=== PATIENT | female | born 1975 | race Hispanic/Latino ===

== ENCOUNTER 2021-02-22 16:58 | Emergency (ER) | payer MEDICAID ==
[2021-02-22 20:37] VITALS: BP 145/72
--- NOTE | 2021-02-22 20:51 | Event Note ---
ED Screening Note Date of service: 02/22/21 Time: 20:50 ED Screening Note: Patient 45-year-old female with history of depression, denies SI or HI at this time. Patient states mold exposure for the past 2 weeks now with shortness of breath cough bilateral lower extremity edema and intermittent brain fog. Symptoms are exacerbated by being in apartment. Symptoms are relieved by being outside of her apartment. Patient requesting chest x-ray to rule out mold pneumonia. This initial assessment/diagnostic orders/clinical plan/treatment(s) is/are subject to change based on patients health status, clinical progression and re- assessment by fellow clinical providers in the ED. Further treatment and workup at subsequent clinical providers discretion. Patient/guardian urged not to elope from the ED as their condition may be serious if not clinically assessed and managed. Initial orders include:
--- NOTE | 2021-02-22 22:36 | Emergency Department Report ---
ED General Adult HPI - General Chief complaint: Medical Clearance Stated complaint: My legs are swollen for 1 week. My vision has been blurry for years. I have been having a headache for years. I have been exposed to black mold for 4 years PUI?: Yes Time Seen by Provider: 02/22/21 22:22 Source: patient, RN notes reviewed, old records reviewed Mode of arrival: Ambulatory Limitations: No Limitations - History of Present Illness Initial comments: The patient was evaluated in the emergency department for symptoms described in the history of present illness. He/she was evaluated in the context of the global COVID-19 pandemic, which necessitated consideration that the patient might be at risk for infection with the virus that causes COVID-19. Institutional protocols and algorithms that pertain to the evaluation of patie nts at risk for COVID-19 are in a state of rapid change based on information released by regulatory bodies including the CDC and federal and state organizations. These policies and algorithms were followed during the patient's care in the emergency department. Please note that these policies, procedures and recommendations changed on a rapid basis. During the history and physical examination, I am chaperoned by nurse Lizeth Tang This is a [age]-year-old female. She is not known to myself previously. She appears to have a history of migraine headaches, depression, and alcohol dependency. She has not received her COVID-19 vaccination. The patient presents to the ER today with 5 complaints. Her first complaint is concerned that she has been exposed to black mold for 4 years. The patient believes that she has been exposed to mold at her current domicile. She is trying to seek alternative living accommodations. She currently denies chest pain, new/different shortness of breath, vomiting. Her next complaint is that her legs have been swollen for 1 to 2 weeks. She denies leg pain, travel, surgery, immobilization, personal/family history of DVT and pulmonary embolism She does not take oral contraceptives. She denies the possibility of . Her next complaint is a headache which has been present for years. The headache is not sudden or thunderclap in nature. The headache is not maximal in intensity. No fever. No no acute changes in vision. No ataxia. No focal extremity weakness/numbness. Her next complaint is request for psychiatric evaluation. The patient is not homicidal suicidal. She states she does not want to overdose on anything. She denies hallucinations. She states she is considering filing a lawsuit, and is seeking reassurance that she is in her right mind. Her next complaint is blurry vision. This is painless, binocular, and present f or years. She currently wears glasses. She has not had her vision checked in quite some time. It is intermittent. -: Gradual, week(s), month(s), year(s) Location: head, left, lower extremity Consistency: intermittent Improves with: none Worsens with: none - Related Data Previous Rx's Medication Instructions Recorded Last Taken Type Multivitamin with Folic Acid 400 mcg PO QDAY #30 tablet 02/23/21 Unknown Rx [Tab-A-Murali Tablet] Potassium Chloride [K-Dur] 20 meq PO QDAY #30 tab 02/23/21 Unknown Rx Allergies Allergy/AdvReac Type Severity Reaction Status Date / Time No Known Allergies Allergy Unverified 06/11/13 19:19 ED Review of Systems ROS: Stated complaint: SWOLLEN FEET, BLURRED VISION, HEADACHE Other details as noted in HPI Constitutional: denies: fever Eyes: other (Blurry vision for years). denies: eye pain Respiratory: denies: shortness of breath Cardiovascular: denies: chest pain Gastrointestinal: denies: abdominal pain, nausea, vomiting, diarrhea Musculoskeletal: other (Bilateral lower extremity swelling) Neurological: headache Psychiatric: denies: auditory hallucinations, visual hallucinations, homicidal thoughts, suicidal thoughts ED Past Medical Hx - Past Medical History Hx Headaches / Migraines: Yes Hx Psychiatric Treatment: Yes (Pt. states 2years ago was admitted to [facility].) Additional medical history: DEPRESSION, alcohol dependency and in treatment 2013 - Surgical History Past Surgical History?: No Additional Surgical History: TUBAL - Social History Smoking Status: Current Every Day Smoker Substance Use Type: None - Medications Home Medications: Home Medications Medication Instructions Recorded Confirmed Last Taken Type Multivitamin with Folic Acid 400 mcg PO QDAY #30 tablet 02/23/21 Unknown Rx [Tab-A-Murali Tablet] Potassium Chloride [K-Dur] 20 meq PO QDAY #30 tab 02/23/21 Unknown Rx ED Physical Exam - General Limitations: No Limitations General appearance: alert, in no apparent distress - Head Head exam: Present: atraumatic, normocephalic - Eye Eye exam: Present: normal appearance, PERRL, EOMI, other (Visual acuity intact to finger counting, color perception, reading at a close distance). Absent: nystagmus - ENT ENT exam: Present: normal exam, normal orophraynx, mucous membranes moist, normal external ear exam - Neck Neck exam: Present: normal inspection, full ROM. Absent: tenderness, meningismus - Respiratory Respiratory exam: Present: normal lung sounds bilaterally. Absent: respiratory distress, wheezes, rales, rhonchi, stridor, decreased breath sounds - Cardiovascular Cardiovascular Exam: Present: regular rate, normal rhythm, normal heart sounds. Absent: bradycardia, tachycardia, irregular rhythm, systolic murmur, diastolic murmur, rubs, gallop - GI/Abdominal GI/Abdominal exam: Present: soft, normal bowel sounds. Absent: distended, tenderness, guarding, rebound, rigid, pulsatile mass - Extremities Exam Extremities exam: Present: normal inspection, full ROM, pedal edema (1-2+ edema in the bilateral lower extremity), other (2+ pulses noted in the bilateral upper and lower extremities. There is no palpable cord. negative Homans sign. M uscular compartments are soft. The pelvis is stable.). Absent: calf tenderness - Back Exam Back exam: Present: normal inspection, full ROM. Absent: tenderness, CVA tenderness (R), CVA tenderness (L), paraspinal tenderness, vertebral tenderness - Neurological Exam Neurological exam: Present: alert (There is no past-pointing. There is no pronator drift. There is normal [id number]), oriented X3, normal gait, other (No facial droop. Tongue midline. Extraocular movements intact bilaterally. Facial sensation intact to light touch in V1, V2, V3 distribution bilaterally. 5 and a 5 strength in 4 extremities. Sensation intact to light touch in 4 extremities.). Absent: motor sensory deficit - Psychiatric Psychiatric exam: Present: flat affect. Absent: homicidal ideation, suicidal ideation - Skin Skin exam: Present: warm, dry, intact, normal color. Absent: rash ED Course Vital Signs 02/22/21 20:34 Temperature 98.4 F Pulse Rate 81 Respiratory 16 Rate Blood Pressure 145/72 O2 Sat by Pulse 98 Oximetry - Reevaluation(s) Reevaluation #1: 02/22/21 23:05 Differential diagnosis, including but not limited to: Chronic headache, chronic blurry vision, dependent edema, renal insufficiency, hepatic insufficiency, hypoalbuminemia, encounter for medical screening examination, encounter for behavioral health screening examination, COVID-19 Assessment and plan: 45-year-old female, who is clinically sober with a GCS of 15, not homicidal, not suicidal, exhibits decision-making capacity, walks with a steady gait, with NIH score of 0, who is not currently tachycardic, tachypneic or hypoxic, who denies DVT and pulmonary embolism risk factors, who is low risk by Wells criteria for pulmonary embolism, PERC negative, with a pentad of nonspecific complaints. Complaints #1, concern for exposure to black mold for years. Lung sounds clear. Not hypoxic. No focal pulmonary findings. X-ray not indicated. Counseled patient that we do not have access to blood or serologic testing to confirm or refute the presence of exposure to black mold. This has been present for years as per the patient's history, she does not appear to be acutely decompensated in this capacity, she may follow-up with her primary care doctor or health department for this concern. Complaint #2,3, headache for years, nonspecific blurry vision for years. GCS 15, NIH score of 0. Visual acuity intact to finger counting, color perception, reading at a close distance Upon my initial evaluation, the patient is reading a tablet, and does not appear to be in any acute distress. Given chronicity of symptoms, benign neurologic examination, do not see indication for advanced emergent neuroimaging. Tylenol, ibuprofen as needed, outpatient follow-up with primary care and/or optometry. Complaint #4, lower extremity swelling. Check liver panel, hepatic panel. No DVT or pulmonary embolism risk factors. If laboratory studies unremarkable, compression stockings, and outpatient follow-up. Complaint #5. Patient awake, alert, oriented, sober, and exhibits decision- making capacity, and is free from distracting injury. She does not meet criteria for 1013 hold or involuntary hold. Patient does not require emergent psychiatric consultation or evaluation here in the emergency room. I advised the patient that if she would like nonemergent psychiatric evaluation, she is welcome to follow-up with a primary care doctor, psychologist, therapist, or outpatient psychiatric facility. She states she is not interested in doing this at this time. During the entire history and physical examination, I am chaperoned by Tamia Tang Patient also endorses nonspecific loss of taste and/or smell for about a month. Long-term Covid is a possibility. Again, not acutely decompensated. Have counseled patient to consider COVID-19 vaccination. The patient is not interested in the vaccination at this time. 02/23/21 00:33 On reevaluation, the patient is sitting comfortably in stretcher, reading paperwork. She is in no acute distress Patient in no acute distress. Laboratory studies unremarkable with the exception of potassium of 3.3. Repeat neurologic examination appears to be unchanged. Suitable for discharge with outpatient follow-up. The patient does not appear to have an emergent medical condition at this time, and is medically suitable to f ollow-up with outpatient primary care doctor All questions answered. The patient endorsed understanding. 02/23/21 00:39 ED Medical Decision Making - Lab Data Result diagrams: 02/23/21 00:04 02/22/21 21:24 Vital Signs 02/22/21 20:34 Temperature 98.4 F Pulse Rate 81 Respiratory 16 Rate Blood Pressure 145/72 O2 Sat by Pulse 98 Oximetry Lab Results 02/22/21 02/22/21 02/22/21 Range/Units 21:24 23:04 23:04 WBC (4.5-11.0) K/mm3 RBC (3.65-5.03) M/mm3 Hgb (10.1-14.3) gm/dl Hct (30.3-42.9) % MCV (79-97) fl MCH (28-32) pg MCHC (30-34) % RDW (13.2-15.2) % Plt Count (140-440) K/mm3 Lymph % (Auto) (13.4-35.0) % [place] % (Auto) (0.0-7.3) % Eos % (Auto) (0.0-4.3) % Baso % (Auto) (0.0-1.8) % Lymph # (Auto) (1.2-5.4) K/mm3 [place] # (Auto) (0.0-0.8) K/mm3 Eos # (Auto) (0.0-0.4) K/mm3 Baso # (Auto) (0.0-0.1) K/mm3 Seg Neutrophils % (40.0-70.0) % Seg Neutrophils # (1.8-7.7) K/mm3 PT 12.8 (12.2-14.9) Sec. INR 0.90 (0.87-1.13) Sodium 141 (137-145) mmol/L Potassium 3.3 L (3.6-5.0) mmol/L Chloride 102.1 (98-107) mmol/L Carbon Dioxide 22 (22-30) mmol/L Anion Gap 20 mmol/L BUN 8 (7-17) mg/dL Creatinine 0.6 (0.6-1.2) mg/dL Estimated GFR > 60 ml/min BUN/Creatinine Ratio 13 % Glucose 99 (65-100) mg/dL Calcium 8.7 (8.4-10.2) mg/dL Magnesium 1.90 (1.7-2.3) mg/dL Total Bilirubin 0.20 (0.1-1.2) mg/dL Direct Bilirubin < 0.2 (0-0.2) mg/dL Indirect Bilirubin 0.0 mg/dL AST 15 (5-40) units/L ALT 15 (7-56) units/L Alkaline Phosphatase 64 (35-129) units/L Total Creatine Kinase 177 H (30-135) units/L Total Protein 6.8 (6.3-8.2) g/dL Albumin 4.3 (3.9-5) g/dL Albumin/Globulin Ratio 1.7 % TSH (0.270-4.200) mlU/mL HCG, Quant (0-4) mIU/mL Salicylates (2.8-20.0) mg/dL Acetaminophen (10.0-30.0) ug/mL 02/22/21 02/22/21 02/22/21 Range/Units 23:04 23:04 23:04 WBC (4.5-11.0) K/mm3 RBC (3.65-5.03) M/mm3 Hgb (10.1-14.3) gm/dl Hct (30.3-42.9) % MCV (79-97) fl MCH (28-32) pg MCHC (30-34) % RDW (13.2-15.2) % Plt Count (140-440) K/mm3 Lymph % (Auto) (13.4-35.0) % [place] % (Auto) (0.0-7.3) % Eos % (Auto) (0.0-4.3) % Baso % (Auto) (0.0-1.8) % Lymph # (Auto) (1.2-5.4) K/mm3 [place] # (Auto) (0.0-0.8) K/mm3 Eos # (Auto) (0.0-0.4) K/mm3 Baso # (Auto) (0.0-0.1) K/mm3 Seg Neutrophils % (40.0-70.0) % Seg Neutrophils # (1.8-7.7) K/mm3 PT (12.2-14.9) Sec. INR (0.87-1.13) Sodium (137-145) mmol/L Potassium (3.6-5.0) mmol/L Chloride (98-107) mmol/L Carbon Dioxide (22-30) mmol/L Anion Gap mmol/L BUN (7-17) mg/dL Creatinine (0.6-1.2) mg/dL Estimated GFR ml/min BUN/Creatinine Ratio % Glucose (65-100) mg/dL Calcium (8.4-10.2) mg/dL Magnesium (1.7-2.3) mg/dL Total Bilirubin (0.1-1.2) mg/dL Direct Bilirubin (0-0.2) mg/dL Indirect Bilirubin mg/dL AST (5-40) units/L ALT (7-56) units/L Alkaline Phosphatase (35-129) units/L Total Creatine Kinase (30-135) units/L Total Protein (6.3-8.2) g/dL Albumin (3.9-5) g/dL Albumin/Globulin Ratio % TSH (0.270-4.200) mlU/mL HCG, Quant < 2 (0-4) mIU/mL Salicylates < 0.3 L (2.8-20.0) mg/dL Acetaminophen 5.0 L (10.0-30.0) ug/mL 02/22/21 02/23/21 Range/Units 23:04 00:04 WBC 8.4 (4.5-11.0) K/mm3 RBC 3.63 L (3.65-5.03) M/mm3 Hgb 11.9 (10.1-14.3) gm/dl Hct 34.4 (30.3-42.9) % MCV 95 (79-97) fl MCH 33 H (28-32) pg MCHC 35 H (30-34) % RDW 13.6 (13.2-15.2) % Plt Count 316 (140-440) K/mm3 Lymph % (Auto) 26.7 (13.4-35.0) % [place] % (Auto) 10.9 H (0.0-7.3) % Eos % (Auto) 1.6 (0.0-4.3) % Baso % (Auto) 0.6 (0.0-1.8) % Lymph # (Auto) 2.2 (1.2-5.4) K/mm3 [place] # (Auto) 0.9 H (0.0-0.8) K/mm3 Eos # (Auto) 0.1 (0.0-0.4) K/mm3 Baso # (Auto) 0.1 (0.0-0.1) K/mm3 Seg Neutrophils % 60.2 (40.0-70.0) % Seg Neutrophils # 5.0 (1.8-7.7) K/mm3 PT (12.2-14.9) Sec. INR (0.87-1.13) Sodium (137-145) mmol/L Potassium (3.6-5.0) mmol/L Chloride (98-107) mmol/L Carbon Dioxide (22-30) mmol/L Anion Gap mmol/L BUN (7-17) mg/dL Creatinine (0.6-1.2) mg/dL Estimated GFR ml/min BUN/Creatinine Ratio % Glucose (65-100) mg/dL Calcium (8.4-10.2) mg/dL Magnesium (1.7-2.3) mg/dL Total Bilirubin (0.1-1.2) mg/dL Direct Bilirubin (0-0.2) mg/dL Indirect Bilirubin mg/dL AST (5-40) units/L ALT (7-56) units/L Alkaline Phosphatase (35-129) units/L Total Creatine Kinase (30-135) units/L Total Protein (6.3-8.2) g/dL Albumin (3.9-5) g/dL Albumin/Globulin Ratio % TSH 2.350 (0.270-4.200) mlU/mL HCG, Quant (0-4) mIU/mL Salicylates (2.8-20.0) mg/dL Acetaminophen (10.0-30.0) ug/mL Critical care attestation.: If time is entered above; I have spent that time in minutes in the direct care of this critically ill patient, excluding procedure time. ED Disposition Clinical Impression: Swelling of lower extremity, Chronic headache, History of blurry vision, Encounter for behavioral health screening, Encounter for medical screening examination Disposition: TO HOME OR SELFCARE Is pt being admited?: No Does the pt Need Aspirin: No Condition: Good Additional Instructions: As we discussed, the patient was not found to have an emergent medical condition present today. For the patient's headache, recommend starting a headache diary ([email or web address]) , patient may take Tylenol, 650 mg by mouth, every 4-6 hours, alternating with ibuprofen, 400 mg by mouth, with food, every 6 hours as needed for physical pain. Minimize exposure to electronic devices and tablets. Prolonged use of cell phone, tablets and electronic devices may exacerbate underlying headache, and blurry vision. Make certain to get at least 7 hours of good quality uninter rupted sleep each evening. For the patient's headache and blurry vision, recommend outpatient follow-up with an certified respiratory therapist, primary care doctor or rn visiting for dedicated and detailed visual testing, and assess the need for glasses and/or contact lenses. Recommend this follow-up within the next 4 weeks. For the patient's concern for exposure to black mold, recommend follow-up with an outpatient primary care doctor, or health department within the next 4 weeks. For the patient's complaint of lower extremity swelling, recommend physical activities as tolerated, and purchase of [id number] compression stockings for lower extremity swelling. Recommend follow-up with an outpatient primary care doctor within the next 4 weeks. For the patient's request for behavioral health screening examination, recommend follow-up with an outpatient primary care doctor, therapist or psychologist within the next 4 weeks. The patient may also present herself electively to [facility], or regular psychiatric facilities more expediently, if she so desires. Recommend that patient accepts COVID-19 vaccination as an outpatient. Vaccination against COVID-19 may decrease COVID-19 symptomatology, and may decrease adverse events associated with active Covid infection. Please return to the emergency room right away with new pain, worsened pain, migration of pain, projectile vomiting, change in mental status, confusion, inability to tolerate liquid feeds, new, worsened or different symptoms not present on the initial emergency room evaluation. Prescriptions: Potassium Chloride [K-Dur] 20 meq PO QDAY #30 tab Multivitamin with Folic Acid [Tab-A-Murali Tablet] 400 mcg PO QDAY #30 tablet Referrals: ALISON GARSIA MD [Primary Care Provider] - 3-5 Days [facility] [Provider Group] - 3-5 Days [facility] [Outside] - 3-5 Days [facility] [Outside] - 3-5 Days
[2021-02-22] MEDS ORDERED: ACETAMINOPHEN 325 MG TAB PO ONE (22:57)
[2021-02-22 23:33] LABS: INR 0.9 (0.87-1.13)
[2021-02-22 23:44] LABS: Alanine Aminotransferase 15 units/L (7-56); Albumin 4.3 g/dL (3.9-5)
[2021-02-22 23:51] LABS: Bilirubin,Direct < 0.2 mg/dL (0-0.2)
[2021-02-23 00:11] LABS: Blood Urea Nitrogen 8 mg/dL (7-17); Calcium 8.7 mg/dL (8.4-10.2); Hemolysis Index 8
[2021-02-23 00:12] LABS: BUN/Creatinine Ratio 13
[2021-02-23] MEDS ORDERED: POTASSIUM CHLORIDE ER 20 MEQ TAB PO ONE (00:15)
[2021-02-23 00:16] LABS: Basophils # (Auto) 0.1 K/mm3 (0.0-0.1); Basophils % (Auto) 0.6 % (0.0-1.8); Eosinophils # (Auto) 0.1 K/mm3 (0.0-0.4); Eosinophils % (Auto) 1.6 % (0.0-4.3); Hematocrit 34.4 % (30.3-42.9); Hemoglobin 11.9 gm/dl (10.1-14.3); Lymphocytes # (Auto) 2.2 K/mm3 (1.2-5.4); Lymphocytes % (Auto) 26.7 % (13.4-35.0); Mean Corpuscular HGB Conc 35 % (30-34); Mean Corpuscular Volume 95 fl (79-97); Monocytes # (Auto) 0.9 K/mm3 (0.0-0.8); Monocytes % (Auto) 10.9 % (0.0-7.3); Platelet Count 316 K/mm3 (140-440); Red Blood Count 3.63 M/mm3 (3.65-5.03); Red Cell Distribution Width 13.6 % (13.2-15.2)
== END 2021-02-23 00:35 | disposition home or self-care (01) ==
LOC: ED 16:58
DX: M79.89 Other specified soft tissue disorders (principal); R51.9 Headache, unspecified; G89.29 Other chronic pain; F17.200 Nicotine dependence, unspecified, uncomplicated; F32.9 Major depressive disorder, single episode, unspecified; Z13.30 Encounter for screening examination for mental health and behavioral disorders, unspecified; Z13.9 Encounter for screening, unspecified; Z79.899 Other long term (current) drug therapy; Z98.51 Tubal ligation status
CPT/HCPCS: 36415; 80048; 80076; 80320; 82550; 83735; 84443; 84702; 85025; 85610; G0480